=== PATIENT | female | born 1990 | race Caucasian/White ===

== ENCOUNTER 2018-02-10 20:37 | Inpatient (IN) | payer MEDICAID ==
[~2018-02-10] VITALS: Ht 162.6 cm; Wt 64.0 kg
[2018-02-10] MEDS ORDERED: QUET25TA PO (20:49)
[2018-02-10] MEDS ORDERED: VALP250 PO (20:49)
[2018-02-10] MEDS ORDERED: CITA20TA9 PO (20:49)
[2018-02-10 21:40] LABS: BASOPHILS % (AUTO) 0.3 % (0.0-2.0); HEMATOCRIT 37.6 % (36-46); HEMOGLOBIN 13.1 g/dL (12.0-16.0); MEAN CORPUSCULAR HEMOGLOBIN 29.2 pg (26.0-34.0); MEAN CORPUSCULAR HGB CONC 34.9 G/dL (31.0-37.0); MEAN CORPUSCULAR VOLUME 84 fL (80-100); MONOCYTES # (AUTO) 0.6 K/uL (0.1-1.0); MONOCYTES % (AUTO) 9.1 % (2.0-9.0); NEUTROPHILS # (AUTO) 3.8 K/uL (1.8-7.7); NEUTROPHILS % (AUTO) 57.6 % (40.0-70.0); PLATELET COUNT (AUTO) 219 K/uL (150-450); RED BLOOD CELL COUNT(AUTO) 4.49 MIL/uL (4.00-5.20); RED CELL DISTRIBUTION WIDTH 13.5 % (11.5-14.5)
[2018-02-10 21:58] LABS: ANION GAP 9 mmol/L (8-16); CALCIUM, TOTAL 8.5 mg/dL (8.8-10.5); CARBON DIOXIDE 30 mmol/L (22-29); CHLORIDE 102 mmol/L (98-107); CREATININE 0.86 mg/dL (0.60-1.30); GLOMERULAR FILTR. RATE CALC > 60 mL/min (>60); GLUCOSE,RANDOM 102 mg/dL (70-110); POTASSIUM 3.7 mmol/L (3.5-5.1); SODIUM SERUM 141 mmol/L (136-145); UREA NITROGEN, BLOOD 14 mg/dL (7-18)
[2018-02-10 22:04] LABS: ALANINE AMINOTRANSFERASE 18 U/L (12-78); ALBUMIN 3.8 g/dL (3.4-5.0); ALKALINE PHOSPHATASE 77 U/L (46-116); ASPARTATE AMINOTRANSFERASE 17 U/L (15-37); BILIRUBIN,TOTAL 0.4 mg/dL (0.1-1.0)
[2018-02-10] MEDS ORDERED: LORazepam 1 MG TABLET PO ONE (22:15)
[2018-02-10] MEDS ORDERED: ACETAMINOPHEN 500 MG TABLET PO ONE (22:15)
[2018-02-10] MEDS ORDERED: HALOPERIDOL 5 MG TABLET PO PRN (22:15)
[2018-02-10 22:25] LABS: APPEARANCE,URINE CLEAR (CLEAR); BILIRUBIN,URINE NEGATIVE (NEGATIVE); GLUCOSE, URINE (UA) NEGATIVE (NEGATIVE); KETONES,URINE NEGATIVE (NEGATIVE); LEUKOCYTE ESTERASE ,URINE NEGATIVE (NEGATIVE); NITRATE,URINE NEGATIVE (NEGATIVE); OCCULT BLOOD,URINE NEGATIVE (NEGATIVE); PH,URINE 7.5 (5.0-8.0); PROTEIN,URINE NEGATIVE (NEGATIVE); UROBILINOGEN,URINE 0.2 mg/dL (<=1.0)
[2018-02-10] MEDS ORDERED: HYDR25TA PO (22:36)
[2018-02-10] MEDS ORDERED: FINA5TAB41 PO (22:36)
[2018-02-10 22:51] VITALS: BP 116/69
[2018-02-10] MEDS: ZOLPIDEM TARTRATE 10 MG TABLET PO PRN (23:36)
[2018-02-10] MEDS ORDERED: INFLUENZA VIRUS VACCINE QVS 2017-18 (3YR+)/PF 60 MCG/0.5 ML SYRINGE IM ONE (23:45)
[2018-02-11 01:57] LABS: AMPHET/METH SCREEN,URINE NEGATIVE (NEGATIVE); BARBITURATE SCREEN, URINE NEGATIVE (NEGATIVE); BENZODIAZEPINES SCREEN,URINE NEGATIVE (NEGATIVE); CANNABINOID SCREEN,URINE NEGATIVE (NEGATIVE); COCAINE SCREEN,URINE NEGATIVE (NEGATIVE); METHADONE SCREEN, URINE NEGATIVE (NEGATIVE); OPIATE SCREEN,URINE NEGATIVE (NEGATIVE)
[2018-02-11 01:58] LABS: PHENCYCLIDINE SCREEN,URINE NEGATIVE (NEGATIVE)
[2018-02-11] MEDS ORDERED: ONDANSETRON HCL 4 MG TABLET PO PRN (07:30)
[2018-02-11] MEDS ORDERED: BACITRACIN 28.4 GM OINTMENT TP PRN (07:30)
[2018-02-11] MEDS ORDERED: IBUPROFEN 600 MG TABLET PO PRN (07:30)
[2018-02-11] MEDS ORDERED: CloNIDine HCL 0.1 MG TABLET PO PRN (07:30)
[2018-02-11] MEDS ORDERED: MAGNESIUM HYDROXIDE SUSPENSION 30 ML UDCUP PO PRN (07:30)
[2018-02-11] MEDS ORDERED: PETROLATUM,WHITE 71 GM JELLY TP PRN (07:30)
[2018-02-11] MEDS ORDERED: ALBUTEROL SULFATE HFA 90 MCG/PUFF 8 GM INHALER IH PRN (07:30)
[2018-02-11] MEDS ORDERED: ACETAMINOPHEN 325 MG TABLET PO PRN (07:30)
[2018-02-11] MEDS ORDERED: MAG HYDROX/AL HYDROX/SIMETH ES 30 ML SUSPENSION UDCUP PO PRN (07:30)
[2018-02-11] MEDS ORDERED: LOPERAMIDE HCL 2 MG CAPSULE PO PRN (07:30)
[2018-02-11] MEDS ORDERED: BENZOCAINE/MENTHOL LOZENGE [8 LOZENGES/PACKET] MM PRN (07:45)
[2018-02-11 08:02] VITALS: BP 100/74
[2018-02-11 20:30] VITALS: BP 103/66
[2018-02-11] MEDS: DIVALPROEX SODIUM 500 MG ER TABLET PO SCH (21:02)
[2018-02-11] MEDS: CITALOPRAM HYDROBROMIDE 10 MG TABLET PO SCH (21:02)
[2018-02-11] MEDS: QUEtiapine FUMARATE 100 MG TABLET PO SCH (21:02)
[2018-02-11] MEDS: LORazepam 2 MG TABLET PO PRN (21:09)
[2018-02-12 08:33] VITALS: BP 113/65
[2018-02-12] MEDS: CITALOPRAM HYDROBROMIDE 10 MG TABLET PO SCH (09:40)
[2018-02-12 18:50] VITALS: BP 103/60
[2018-02-12] MEDS: DIVALPROEX SODIUM 500 MG ER TABLET PO SCH (20:09)
[2018-02-12] MEDS: QUEtiapine FUMARATE 100 MG TABLET PO SCH (20:09)
[2018-02-13 06:59] VITALS: BP 110/68
[2018-02-13 08:19] LABS: BAND NEUTROPHILS % (MANUAL) 0 % (0-5)
[2018-02-13 08:22] LABS: HEMATOCRIT 37.2 % (36-46); HEMOGLOBIN 12.7 g/dL (12.0-16.0); MEAN CORPUSCULAR HEMOGLOBIN 28.6 pg (26.0-34.0); MEAN CORPUSCULAR HGB CONC 34.2 G/dL (31.0-37.0); MEAN CORPUSCULAR VOLUME 84 fL (80-100); PLATELET COUNT (AUTO) 182 K/uL (150-450); RED BLOOD CELL COUNT(AUTO) 4.44 MIL/uL (4.00-5.20); RED CELL DISTRIBUTION WIDTH 13.4 % (11.5-14.5)
[2018-02-13 08:47] VITALS: BP 101/61
[2018-02-13 08:48] LABS: ANION GAP 7 mmol/L (8-16); CALCIUM, TOTAL 8.2 mg/dL (8.8-10.5); CARBON DIOXIDE 29 mmol/L (22-29); CHLORIDE 105 mmol/L (98-107); CHOL/HDL RATIO 4.5 (3.9-5.7); CHOLESTEROL 196 mg/dL (131-200); CREATININE 0.86 mg/dL (0.60-1.30); GLOMERULAR FILTR. RATE CALC > 60 mL/min (>60); GLUCOSE,RANDOM 79 mg/dL (70-110); HDL CHOLESTEROL 44 mg/dL (40-60); LDL CHOL (CALC.) 127 mg/dL (0-130); PHOSPHORUS 3.3 mg/dL (2.5-4.9); POTASSIUM 3.8 mmol/L (3.5-5.1); SODIUM SERUM 141 mmol/L (136-145); THYROID STIMULATING HORMONE 1.21 uIU/mL (0.36-3.74); TRIGLYCERIDES 124 mg/dL (15-150); UREA NITROGEN, BLOOD 16 mg/dL (7-18)
[2018-02-13] MEDS: CITALOPRAM HYDROBROMIDE 10 MG TABLET PO SCH (09:42)
[2018-02-13 09:52] LABS: EOSINOPHILS % (MANUAL) 1 % (1-6); LYMPHOCYTES % (MANUAL) 33 % (22-44); MONOCYTES % (MANUAL) 11 % (2-9); SEGMENTED NEUTROPHILS % 55 % (40-70)
[2018-02-13 16:05] VITALS: BP 107/64
[2018-02-13] MEDS: DIVALPROEX SODIUM 500 MG ER TABLET PO SCH (20:20)
[2018-02-13] MEDS: QUEtiapine FUMARATE 100 MG TABLET PO SCH (20:20)
[2018-02-14 06:36] VITALS: BP 108/64
[2018-02-14 08:29] VITALS: BP 109/73
[2018-02-14] MEDS: CITALOPRAM HYDROBROMIDE 10 MG TABLET PO SCH (08:44)
[2018-02-14 16:00] VITALS: BP 110/60
[2018-02-14] MEDS: LORazepam 2 MG TABLET PO PRN (19:19)
[2018-02-14] MEDS: QUEtiapine FUMARATE 100 MG TABLET PO SCH (20:05)
[2018-02-14] MEDS: DIVALPROEX SODIUM 500 MG ER TABLET PO SCH (20:05)
[2018-02-14] MEDS: ZOLPIDEM TARTRATE 10 MG TABLET PO PRN (20:56)
[2018-02-15 06:25] VITALS: BP 108/92
[2018-02-15] MEDS: CITALOPRAM HYDROBROMIDE 10 MG TABLET PO SCH (08:38)
[2018-02-15 08:50] VITALS: BP 109/71
[2018-02-15 16:26] VITALS: BP 124/68
[2018-02-15] MEDS: LORazepam 2 MG TABLET PO PRN (18:42)
[2018-02-15] MEDS: QUEtiapine FUMARATE 100 MG TABLET PO SCH (20:05)
[2018-02-15] MEDS: DIVALPROEX SODIUM 500 MG ER TABLET PO SCH (20:05)
[2018-02-15] MEDS: ZOLPIDEM TARTRATE 10 MG TABLET PO PRN (20:05)
[2018-02-16 06:24] VITALS: BP 108/62
[2018-02-16] MEDS: CITALOPRAM HYDROBROMIDE 10 MG TABLET PO SCH (08:48)
[2018-02-16 08:51] VITALS: BP 104/54
[2018-02-16] MEDS ORDERED: CHOLECALCIFEROL (VIT D3) 1,000 UNITS TABLET PO SCH (09:00)
[2018-02-16] MEDS ORDERED: DIVA500T52 PO (09:51)
[2018-02-16] MEDS ORDERED: QUET100T33 PO (09:51)
[2018-02-16] MEDS ORDERED: CITA10TA68 PO (09:51)
== END 2018-02-16 13:29 | disposition home or self-care (01) | DRG 753 ==
LOC: EMS 20:39 → AHU 22:30 → B2S 02-12 18:05
DX: F31.4 Bipolar disorder, current episode depressed, severe, without psychotic features (principal); R45.851 Suicidal ideations; F41.9 Anxiety disorder, unspecified; R51 Headache; G47.00 Insomnia, unspecified; Z79.899 Other long term (current) drug therapy; Z28.21 Immunization not carried out because of patient refusal
CPT/HCPCS: 82306; 83735; 84100; 84443; 85007; 87081; 99285; G0480

== ENCOUNTER 2018-02-16 16:42 | Inpatient (IN) | payer MEDICAID ==
[~2018-02-16] VITALS: Ht 162.6 cm; Wt 64.0 kg
[~2018-02-16 16:42] MED LIST: CITA10TA68 PO; CITA20TA9 PO; DIVA500T52 PO; QUET100T33 PO; QUET25TA PO; VALP250 PO
[2018-02-16 17:20] VITALS: BP 117/77
[2018-02-16 17:53] VITALS: BP 111/67
[2018-02-16] MEDS ORDERED: INFLUENZA VIRUS VACCINE QVS 2017-18 (3YR+)/PF 60 MCG/0.5 ML SYRINGE IM ONE (19:00)
[2018-02-16] MEDS: LORazepam 2 MG TABLET PO PRN (19:31)
[2018-02-16] MEDS: ZOLPIDEM TARTRATE 10 MG TABLET PO PRN (20:26)
[2018-02-16] MEDS: QUEtiapine FUMARATE 100 MG TABLET PO SCH (20:27)
[2018-02-16] MEDS: DIVALPROEX SODIUM 500 MG ER TABLET PO SCH (20:27)
[2018-02-17 06:44] VITALS: BP 103/69
[2018-02-17] MEDS ORDERED: ONDANSETRON HCL 4 MG TABLET PO PRN (07:00)
[2018-02-17] MEDS ORDERED: BENZOCAINE/MENTHOL LOZENGE MM PRN (07:00)
[2018-02-17] MEDS ORDERED: IBUPROFEN 600 MG TABLET PO PRN (07:00)
[2018-02-17] MEDS ORDERED: CloNIDine HCL 0.1 MG TABLET PO PRN (07:00)
[2018-02-17] MEDS ORDERED: ALBUTEROL SULFATE HFA 90 MCG/PUFF 8 GM INHALER IH PRN (07:00)
[2018-02-17] MEDS ORDERED: LOPERAMIDE HCL 2 MG CAPSULE PO PRN (07:00)
[2018-02-17] MEDS ORDERED: ACETAMINOPHEN 325 MG TABLET PO PRN (07:00)
[2018-02-17] MEDS ORDERED: MAG HYDROX/AL HYDROX/SIMETH ES 30 ML SUSPENSION UDCUP PO PRN (07:00)
[2018-02-17] MEDS ORDERED: MAGNESIUM HYDROXIDE SUSPENSION 30 ML UDCUP PO PRN (07:00)
[2018-02-17] MEDS ORDERED: BACITRACIN 28.4 GM OINTMENT TP PRN (07:00)
[2018-02-17] MEDS ORDERED: PETROLATUM,WHITE 71 GM JELLY TP PRN (07:00)
[2018-02-17 08:42] VITALS: BP 108/79
[2018-02-17] MEDS: CITALOPRAM HYDROBROMIDE 10 MG TABLET PO SCH (09:59)
[2018-02-17 12:28] VITALS: BP 114/65
[2018-02-17] MEDS: LORazepam 2 MG TABLET PO PRN ×2 (12:29→18:47)
[2018-02-17 16:33] VITALS: BP 109/73
[2018-02-17] MEDS: HALOPERIDOL 5 MG TABLET PO PRN (18:47)
[2018-02-17] MEDS: QUEtiapine FUMARATE 100 MG TABLET PO SCH (21:07)
[2018-02-17] MEDS: DIVALPROEX SODIUM 500 MG ER TABLET PO SCH (21:07)
[2018-02-18 06:44] VITALS: BP 106/68
[2018-02-18] MEDS: CITALOPRAM HYDROBROMIDE 10 MG TABLET PO SCH (08:41)
[2018-02-18] MEDS: HALOPERIDOL 5 MG TABLET PO PRN (16:46)
[2018-02-18] MEDS: LORazepam 2 MG TABLET PO PRN (16:46)
[2018-02-18 17:01] VITALS: BP 147/87
[2018-02-18] MEDS: DIVALPROEX SODIUM 500 MG ER TABLET PO SCH (20:28)
[2018-02-18] MEDS: QUEtiapine FUMARATE 200 MG TABLET PO SCH (20:29)
[2018-02-18] MEDS: ZOLPIDEM TARTRATE 10 MG TABLET PO PRN (22:00)
[2018-02-19 06:45] VITALS: BP 91/57
[2018-02-19] MEDS: CITALOPRAM HYDROBROMIDE 20 MG TABLET PO SCH (08:42)
[2018-02-19] MEDS: LORazepam 2 MG TABLET PO PRN ×2 (08:45→20:09)
[2018-02-19 09:00] VITALS: BP 103/57
[2018-02-19 16:22] VITALS: BP 115/68
[2018-02-19] MEDS: QUEtiapine FUMARATE 200 MG TABLET PO SCH (20:09)
[2018-02-19] MEDS: DIVALPROEX SODIUM 500 MG ER TABLET PO SCH (20:09)
[2018-02-20 00:30] VITALS: BP 114/77
[2018-02-20] MEDS: ZOLPIDEM TARTRATE 10 MG TABLET PO PRN ×2 (01:32→21:37)
[2018-02-20] MEDS: LORazepam 2 MG TABLET PO PRN ×3 (01:32→18:38)
[2018-02-20 09:07] VITALS: BP 100/53
[2018-02-20] MEDS: CITALOPRAM HYDROBROMIDE 20 MG TABLET PO SCH (09:59)
[2018-02-20 16:17] VITALS: BP 115/75
[2018-02-20] MEDS: HALOPERIDOL 5 MG TABLET PO PRN (18:39)
[2018-02-20] MEDS: QUEtiapine FUMARATE 200 MG TABLET PO SCH (20:17)
[2018-02-20] MEDS: DIVALPROEX SODIUM 500 MG ER TABLET PO SCH (20:17)
[2018-02-21 06:45] VITALS: BP 100/60
[2018-02-21] MEDS: CITALOPRAM HYDROBROMIDE 20 MG TABLET PO SCH (10:27)
[2018-02-21 11:50] VITALS: BP 93/62
[2018-02-21 16:13] VITALS: BP 119/63
[2018-02-21] MEDS: LORazepam 2 MG TABLET PO PRN (17:12)
[2018-02-21] MEDS: DIVALPROEX SODIUM 500 MG ER TABLET PO SCH (20:22)
[2018-02-21] MEDS: QUEtiapine FUMARATE 200 MG TABLET PO SCH (20:22)
[2018-02-21] MEDS: HALOPERIDOL 5 MG TABLET PO PRN (20:22)
[2018-02-22] VITALS (8 sets, daily range): BP systolic 88–126; BP diastolic 46–69
[2018-02-22] MEDS: CITALOPRAM HYDROBROMIDE 20 MG TABLET PO SCH (09:28)
[2018-02-22] MEDS: QUEtiapine FUMARATE 200 MG TABLET PO SCH (21:02)
[2018-02-22] MEDS: DIVALPROEX SODIUM 500 MG ER TABLET PO SCH (21:02)
[2018-02-22] MEDS: ZOLPIDEM TARTRATE 10 MG TABLET PO PRN (22:02)
[2018-02-23 06:04] VITALS: BP 92/77
[2018-02-23 08:20] VITALS: BP 99/62
[2018-02-23] MEDS: CITALOPRAM HYDROBROMIDE 20 MG TABLET PO SCH (08:35)
[2018-02-23 08:38] LABS: BASOPHILS % (AUTO) 0.4 % (0.0-2.0); EOSINOPHILS % (AUTO) 3.9 % (1.0-6.0); HEMATOCRIT 34.4 % (36-46); LYMPHOCYTES # (AUTO) 2.5 K/uL (1.0-4.8); LYMPHOCYTES % (AUTO) 40.8 % (22.0-44.0); MEAN CORPUSCULAR HEMOGLOBIN 28.9 pg (26.0-34.0); MEAN CORPUSCULAR HGB CONC 34.8 G/dL (31.0-37.0); MEAN CORPUSCULAR VOLUME 83 fL (80-100); MONOCYTES # (AUTO) 0.6 K/uL (0.1-1.0); MONOCYTES % (AUTO) 10.1 % (2.0-9.0); NEUTROPHILS # (AUTO) 2.8 K/uL (1.8-7.7); NEUTROPHILS % (AUTO) 44.8 % (40.0-70.0); PLATELET COUNT (AUTO) 165 K/uL (150-450); RED BLOOD CELL COUNT(AUTO) 4.15 MIL/uL (4.00-5.20); RED CELL DISTRIBUTION WIDTH 13.2 % (11.5-14.5)
[2018-02-23 08:56] LABS: ALANINE AMINOTRANSFERASE 16 U/L (12-78); ALBUMIN 3.1 g/dL (3.4-5.0); ALKALINE PHOSPHATASE 63 U/L (46-116); ANION GAP 7 mmol/L (8-16); ASPARTATE AMINOTRANSFERASE 14 U/L (15-37); BILIRUBIN,TOTAL 0.4 mg/dL (0.1-1.0); CALCIUM, TOTAL 8.1 mg/dL (8.8-10.5); CARBON DIOXIDE 29 mmol/L (22-29); CHLORIDE 101 mmol/L (98-107); CHOL/HDL RATIO 3.9 (3.9-5.7); CHOLESTEROL 152 mg/dL (131-200); CREATININE 0.84 mg/dL (0.60-1.30); FREE T4 (FREE THYROXINE) 0.77 ng/dL (0.76-1.46); GLOMERULAR FILTR. RATE CALC > 60 mL/min (>60); GLUCOSE,RANDOM 80 mg/dL (70-110); HDL CHOLESTEROL 39 mg/dL (40-60); LDL CHOL (CALC.) 91 mg/dL (0-130); POTASSIUM 3.5 mmol/L (3.5-5.1); SODIUM SERUM 137 mmol/L (136-145); THYROID STIMULATING HORMONE 4.02 uIU/mL (0.36-3.74); TRIGLYCERIDES 111 mg/dL (15-150); UREA NITROGEN, BLOOD 11 mg/dL (7-18)
[2018-02-23] MEDS ORDERED: ZOLPIDEM TARTRATE 5 MG TABLET PO PRN (09:00)
[2018-02-23] MEDS ORDERED: LORazepam 2 MG TABLET PO PRN (09:15)
[2018-02-23] MEDS ORDERED: HALOPERIDOL 5 MG TABLET PO PRN (09:15)
[2018-02-23 16:25] VITALS: BP 110/67
[2018-02-23] MEDS ORDERED: QUET100T PO (17:42)
[2018-02-23] MEDS ORDERED: DIVA500T69 PO (17:42)
[2018-02-23] MEDS ORDERED: CITA20TA9 PO (17:42)
[2018-02-23] MEDS: DIVALPROEX SODIUM 500 MG ER TABLET PO SCH (20:34)
[2018-02-23] MEDS ORDERED: QUEtiapine FUMARATE 100 MG TABLET PO SCH (21:00)
[2018-02-24 06:48] VITALS: BP 102/67
== END 2018-02-24 07:15 | disposition short-term general hospital (02) | DRG 753 ==
LOC: B2S 17:58 → B3A 02-17 18:09
DX: F31.5 Bipolar disorder, current episode depressed, severe, with psychotic features (principal); I95.9 Hypotension, unspecified; R45.851 Suicidal ideations; E55.9 Vitamin D deficiency, unspecified; F23 Brief psychotic disorder; F41.9 Anxiety disorder, unspecified; G47.00 Insomnia, unspecified; F60.9 Personality disorder, unspecified; Z56.0 Unemployment, unspecified; Z91.5 Personal history of self-harm
CPT/HCPCS: 84436; 84439; 84443; 87081; J3535